=== PATIENT | female | born 1980 | race Asian ===

== ENCOUNTER 2019-07-07 21:59 | Emergency (ER) | payer OTHER ==
[~2019-07-07] VITALS: Ht 149.9 cm; Wt 52.2 kg
[2019-07-07 22:04] VITALS: Ht 149.9 cm; Wt 52.2 kg
[2019-07-07 23:00] LABS: BASOPHIL % 0.5 % (0-2)
[2019-07-07 23:05] LABS: RED CELL DISTRIBUTION WIDTH 21.6 % (11.5-14.5)
[2019-07-07 23:06] LABS: PLATELET COUNT 617 x10^3mcL (130-400)
[2019-07-07 23:07] LABS: CALCIUM 8.7 mg/dL (8.5-10.1); CARBON DIOXIDE 27.1 mmol/L (21-32); CHLORIDE SERUM 104 mmol/L (98-107); CREATININE SERUM 0.7 mg/dL (0.6-1.0); GFR1 > 60 mL/min; GLUCOSE SERUM 104 mg/dL (74-106); POTASSIUM SERUM 4.1 mmol/L (3.5-5.1); SODIUM SERUM 139 mmol/L (136-145)
[2019-07-07 23:18] LABS: rbc morphology (normal/abnorm) ABNORMAL (NORMAL)
[2019-07-07 23:19] LABS: ALBUMIN 4.2 g/dL (3.4-5.0); ALKALINE PHOSPHATASE 73 U/L (46-116); ALT/SGPT 29 U/L (14-59); AST/SGOT 28 U/L (15-37); BILIRUBIN TOTAL 0.6 mg/dL (0.20-1.00); T4(THYROXINE) 10.2 ug/dL (4.7-13.3); TOTAL PROTEIN, SERUM 8.4 g/dL (6.4-8.2)
[2019-07-08 00:27] LABS: AMPHETAMINE QUAL UR POSITIVE (See below)
[2019-07-08 02:27] VITALS: BP 99/68
== END 2019-07-08 02:27 | disposition home or self-care (01) ==
LOC: ED 21:59
PROVIDERS: Emergency Medicine
DX: R00.2 Palpitations (principal); N39.0 Urinary tract infection, site not specified; D47.3 Essential (hemorrhagic) thrombocythemia; D72.829 Elevated white blood cell count, unspecified; Z88.2 Allergy status to sulfonamides
CPT/HCPCS: J0696; J7030; J7060; Q0092